=== PATIENT | male | born 1960 | race African-American/Black ===

== ENCOUNTER 2023-08-12 02:27 | Emergency (ER) | payer MEDICARE, MEDICAID ==
[~2023-08-12] VITALS: Ht 188 cm; Wt 74.0 kg
[~2023-08-12 02:27] MED LIST: AMLO10TA4 PO; CETI10TA6 PO; FLUT16SP15 BOTHNSTRLS; LISI40TA13 PO
[2023-08-12 02:39] VITALS: BP 134/86; PULSE 79; RESP 12; TEMP 98.4; O2SAT 100
[2023-08-12 03:46] LABS: CHLORIDE 104 mEq/L (98-107); POTASSIUM 3.7 mEq/L (3.5-5.1); SODIUM 139 mEq/L (136-145)
[2023-08-12 03:47] LABS: CALCIUM 9.7 mg/dL (8.7-10.4); CARBON DIOXIDE 30 mEq/L (21-32)
[2023-08-12 03:50] LABS: EOSINOPHILS % 3.6 % (0.0-5.0); HEMATOCRIT. 37.8 % (42.0-52.0); HEMOGLOBIN. 12.6 g/dL (14.0-18.0); LYMPHOCYTES % 45.7 % (20.0-50.0); MEAN CORPUSCULAR HGB CONC 33.4 g/dL (31.0-37.0); MEAN PLATELET VOLUME 8.1 fl (7.4-10.4); MONOCYTES % 13.5 % (2.0-8.0); NEUTROPHILS % 36.2 % (40.0-76.0); PLATELET 216 x1000/uL (130-400); RED BLOOD CELL COUNT 4.07 mill/uL (4.7-6.1); RED CELL DISTRIBUTION WIDTH 14.6 % (11.6-14.6); WHITE BLOOD COUNT 5.1 x1000/uL (4.5-11.0)
[2023-08-12 03:52] LABS: CREATININE 1.1 mg/dL (0.6-1.3); GLUCOSE 98 mg/dL (70-105); UREA NITROGEN BLOOD 16 mg/dL (9-23)
[2023-08-12 03:54] LABS: ALANINE AMINOTRANSFERASE 41 IU/L (10-49); ALBUMIN 4.8 g/dL (3.2-4.8); ASPARTATE AMINOTRANSFERASE 42 IU/L (<34); BILIRUBIN TOTAL 0.8 mg/dL (0.1-1.0); PROTEIN TOTAL 7.5 g/dL (6.0-8.3)
[2023-08-12] MEDS ORDERED: CEFI400C4 PO (06:18)
[2023-08-12] MEDS ORDERED: HYDR-4001 MT (06:18)
[2023-08-12] MEDS ORDERED: CLIN-194 MT (06:18)
== END 2023-08-12 07:07 | disposition home or self-care (01) ==
LOC: ER 02:27
DX: J32.8 Other chronic sinusitis (principal); R51.9 Headache, unspecified; J45.909 Unspecified asthma, uncomplicated; I10 Essential (primary) hypertension; Z98.890 Other specified postprocedural states
CPT/HCPCS: 36415; 70486; 80053; 85025; 99284

== ENCOUNTER 2023-08-19 10:54 | Emergency (ER) | payer MEDICARE, MEDICAID ==
[~2023-08-19] VITALS: Ht 188 cm; Wt 73.0 kg
[~2023-08-19 10:54] MED LIST changes: +CEFI400C4 PO; +CLIN-194 MT; +HYDR-4001 MT
[2023-08-19 10:57] VITALS: O2SAT 100
[2023-08-19] MEDS ORDERED: P20 MT (11:57)
[2023-08-19] MEDS ORDERED: PSEU60TA95 MT (11:57)
[2023-08-19 12:15] VITALS: BP 144/91; PULSE 99; RESP 18; TEMP 98.3
== END 2023-08-19 12:28 | disposition home or self-care (01) ==
LOC: ER 10:54
DX: J01.90 Acute sinusitis, unspecified (principal); J45.909 Unspecified asthma, uncomplicated; I10 Essential (primary) hypertension; Z21 Asymptomatic human immunodeficiency virus [HIV] infection status; Z79.899 Other long term (current) drug therapy
CPT/HCPCS: 99281; 99283